=== PATIENT | male | born 1965 | race Caucasian/White ===

== ENCOUNTER 2022-03-11 08:36 | Emergency (ER) | payer SELFPAY ==
--- NOTE | 2022-03-11 09:14 | EDPHYS ---
Physician Documentation [facility] Name: Hussein Torres Age: 56 yrs Sex: Male : 1965 Arrival Date: 03/11/2022 Time: 08:41 Bed 13 Private MD: ED Physician Joni Ying HPI: 03/11 09:43 This 56 yrs old Male presents to ER via Ambulatory with complaints of Worm In Ear. snw 09:43 Onset: The symptoms/episode began/occurred acutely. Associated signs and symptoms: The snw patient has no apparent associated signs or symptoms. The patient has not experienced similar symptoms in the past. pt was on course of abx 1 month ago for left OM. Historical: - Allergies: 08:50 No Known Allergies; ss - Immunization history:: Client reports receiving the 2nd dose of the Covid vaccine. - Social history:: Smoking status: Patient reports the use of cigarette tobacco products, smokes one pack cigarettes per day. ROS: 09:36 Constitutional: Negative for fever, chills, and weight loss, Eyes: Negative for injury, snw pain, redness, and discharge, Neck: Negative for injury, pain, and swelling, Cardiovascular: Negative for chest pain, palpitations, and edema, Respiratory: Negative for shortness of breath, cough, wheezing, and pleuritic chest pain, Abdomen/GI: Negative for abdominal pain, nausea, vomiting, diarrhea, and constipation, Back: Negative for injury and pain, : Negative for injury, bleeding, discharge, and swelling, MS/Extremity: Negative for injury and deformity, Skin: Negative for injury, rash, and discoloration, Neuro: Negative for headache, weakness, numbness, tingling, and seizure. 09:36 ENT: Positive for pt states he was pulling a live worm from the tissue of his ear at the helix. States the tool slipped and he doesn't know where the worm went. Exam: 09:35 Constitutional: This is a well developed, well nourished patient who is awake, alert, snw and in no acute distress. Head/Face: Normocephalic, atraumatic. Eyes: Pupils equal round and reactive to light, extra-ocular motions intact. Lids and lashes normal. Conjunctiva and sclera are non-icteric and not injected. Cornea within normal limits. Periorbital areas with no swelling, redness, or edema. Neck: Trachea midline, no thyromegaly or masses palpated, and no cervical lymphadenopathy. Supple, full range of motion without nuchal rigidity, or vertebral point tenderness. No Meningismus. Chest/axilla: Normal chest wall appearance and motion. Nontender with no deformity. No lesions are appreciated. Cardiovascular: Regular rate and rhythm with a normal S1 and S2. No gallops, murmurs, or rubs. Normal PMI, no JVD. No pulse deficits. Respiratory: Lungs have equal breath sounds bilaterally, clear to auscultation and percussion. No rales, rhonchi or wheezes noted. No increased work of breathing, no retractions or nasal flaring. Abdomen/GI: Soft, non-tender, with normal bowel sounds. No distension or tympany. No guarding or rebound. No evidence of tenderness throughout. Back: No spinal tenderness. No costovertebral tenderness. Full range of motion. Skin: Warm, dry with normal turgor. Normal color with no rashes, no lesions, and no evidence of cellulitis. MS/ Extremity: Pulses equal, no cyanosis. Neurovascular intact. Full, normal range of motion. Neuro: Awake and alert, GCS 15, oriented to person, place, time, and situation. Cranial nerves II-XII grossly intact. Motor strength 5/5 in all extremities. Sensory grossly intact. Cerebellar exam normal. Normal gait. Psych: Awake, alert, with orientation to person, place and time. Behavior, mood, and affect are within normal limits. 09:35 ENT: External ear(s): pt has a visible pit to mid helix, has been manipulating the area with pliers, hemastats, etc. Area above pit unroofed, with mild cellulitis, TM's: erythema, that is mild, bilaterally, Nose: is normal, Mouth: is normal. Vital Signs: 08:47 BP 148 / 76; Pulse 97; Resp 18; Temp 98.6(TE); Pulse Ox 95% on R/A; Weight 104.33 kg; ss Height 5 ft. 10 in. (177.80 cm); Pain 0/10; 09:15 BP 131 / 92; Pulse 90; Resp 18; Pulse Ox 95% on R/A; db 10:19 BP 138 / 87; Pulse 88; Resp 18; Pulse Ox 95% on R/A; db 08:47 Body Mass Index 33.00 (104.33 kg, 177.80 cm) ss MDM: 08:51 Patient medically screened. snw 09:37 Differential diagnosis: viral Infection, bacterial infection, parasitic infection. Data snw reviewed: vital signs, nurses notes. Historians other than the Patient: Parent: Mom. Counseling: I had a detailed discussion with the patient and/or guardian regarding: the historical points, exam findings, and any diagnostic results supporting the discharge/admit diagnosis, the presence of at least one elevated blood pressure reading (>120/80) during this emergency department visit, the need for outpatient follow up, for definitive care, to return to the emergency department if symptoms worsen or persist or if there are any questions or concerns that arise at home. Special discussion: I have referred the patient to see his PCP for further evaluation of high blood pressure. Based on the history and exam findings, there is no indication for further emergent testing or inpatient evaluation. I discussed with the patient/guardian the need to see the ENT specialist for further evaluation of the symptoms. I discussed with the patient/guardian the need to see the primary care provider for further evaluation of the symptoms. Administered Medications: 09:25 Drug: Boostrix Tdap 0.5 ml Route: IM; Site: right deltoid; db 09:48 Follow up: Response: No adverse reaction db 09:25 Drug: Mupirocin Ointment 2 % 1 application {Note: right ear.} Route: Topical; Site: db wound; 09:48 Follow up: Response: No adverse reaction db 09:25 Drug: Hibiclens (chlorhexidine) Liquid 4 % 1 application {Note: right ear.} Route: db Topical; Site: wound; 09:48 Follow up: Response: No adverse reaction db 09:25 Drug: [place] (HYDROcodone-acetaminophen) 5 mg-325 mg 1 tabs Route: PO; db 09:48 Follow up: Response: No adverse reaction db 09:34 CANCELLED (Physician Discretion): Clindamycin 600 mg IM once snw 09:43 Drug: Clindamycin 300 mg Route: PO; db 10:17 Follow up: Response: No adverse reaction db 09:47 CANCELLED (Medication not available from pharmacyy): Pyrantel Pamoate 250 mg PO once db 10:15 Drug: Ivermectin 15 mg Route: PO; db 10:19 Follow up: Response: No adverse reaction db Disposition: :23 Co-signature as Attending Physician, Joni Ying DO I was immediately available on-site ms3 in the Emergency Department for consultation in the care of the patient. Disposition Summary: 03/11/22 09:14 Discharge Ordered Location: Home snw Condition: Stable snw Diagnosis - Other otitis externa, right ear - potential cauliflower ear snw Followup: snw - With: Emergency Department - When: As needed - Reason: Worsening of condition Followup: snw - With: Private Physician - When: 5 - 6 days - Reason: Recheck today's complaints, Continuance of care, Re-evaluation by your physician Discharge Instructions: - Discharge Summary Sheet snw - Otitis Externa snw - Cauliflower Ear snw Forms: - Medication Reconciliation Form snw - Thank You Letter snw - Antibiotic Education snw - Prescription Opioid Use snw Prescriptions: - Clindamycin HCl 300 mg Oral Capsule - take 1 capsule by ORAL route every 8 hours for 10 days; 30 capsule; Refills: 0, snw Product Selection Permitted - mupirocin 2 % Topical ointment - apply 1 application by TOPICAL route 3 times per day; 50 gram; Refills: 0, snw Product Selection Permitted Signatures: Lena Sr FNP-C INFORMATICS COORDINATOR-Csnw Nicolasa Williamson RN RN ss Joni Ying DO DO ms3 Morenita Ahn RN RN db Corrections: (The following items were deleted from the chart) 09:34 09:10 Clindamycin 600 mg IM once ordered. snw snw 09:47 09:19 Pyrantel Pamoate 250 mg PO once ordered. snw db
--- NOTE | 2022-03-11 09:14 | ER ---
Nurse's Notes [facility] Name: Hussein Torres Age: 56 yrs Sex: Male : 1965 Arrival Date: 03/11/2022 Time: 08:41 Bed 13 Private MD: Diagnosis: Other otitis externa, right ear-potential cauliflower ear Presentation: 03/11 08:47 Chief complaint: Patient states: "I got a critter that took up residence in my ear!" Pt ss reports that he believes there is a strong worm in his R ear for the past 3 weeks. Coronavirus screen: Client denies travel out of the [place] in the last 14 days. Ebola Screen: Patient denies exposure to infectious person. Patient denies travel to an Ebola-affected area in the 21 days before illness onset. Initial Sepsis Screen: Does the patient meet any 2 criteria? No. Patient's initial sepsis screen is negative. Does the patient have a suspected source of infection? No. Patient's initial sepsis screen is negative. Risk Assessment: Do you want to hurt yourself or someone else? Patient reports no desire to harm self or others. Onset of symptoms was February 17, 2022. 08:47 Method Of Arrival: Ambulatory ss 08:47 Acuity: SANG 4 ss Triage Assessment: 09:00 General: Appears in no apparent distress. db Historical: - Allergies: 08:50 No Known Allergies; ss - Immunization history:: Client reports receiving the 2nd dose of the Covid vaccine. - Social history:: Smoking status: Patient reports the use of cigarette tobacco products, smokes one pack cigarettes per day. Screenin:55 [facility] ED Fall Risk Assessment (Adult) History of falling in the last 3 months, db including since admission No falls in past 3 months (0 pts) Confusion or Disorientation No (0 pts) Intoxicated or Sedated No (0 pts) Impaired Gait No (0 pts) Mobility Assist Device Used No (0 pt) Altered Elimination No (0 pt) Score/Fall Risk Level 0 - 2 = Low Risk Oriented to surroundings, Maintained a safe environment. Abuse screen: Denies threats or abuse. Denies injuries from another. Nutritional screening: No deficits noted. Tuberculosis screening: No symptoms or risk factors identified. Assessment: 08:52 Reassessment: Patient appears in no apparent distress at this time. Patient and/or db family updated on plan of care and expected duration. Pain level reassessed. Patient is alert, oriented x 3, equal unlabored respirations, skin warm/dry/pink. patient states has a worm or "critter" in his right ear x 2 weeks. General: Appears in no apparent distress. comfortable, Behavior is calm, cooperative, appropriate for age. Pain: Complains of pain in right ear. Neuro: No deficits noted. Level of Consciousness is awake, alert, obeys commands, Oriented to person, place, time, situation, Moves all extremities. Speech is normal. Cardiovascular: No deficits noted. Respiratory: Airway is patent Respiratory effort is even, unlabored, Respiratory pattern is regular, symmetrical. GI: No deficits noted. No signs and/or symptoms were reported involving the gastrointestinal system. 09:50 Reassessment: Patient appears in no apparent distress at this time. patient discharge db pending medication from pharmacy. 10:17 Reassessment: Patient appears in no apparent distress at this time. Patient and/or db family updated on plan of care and expected duration. Pain level reassessed. Patient is alert, oriented x 3, equal unlabored respirations, skin warm/dry/pink. Vital Signs: 08:47 BP 148 / 76; Pulse 97; Resp 18; Temp 98.6(TE); Pulse Ox 95% on R/A; Weight 104.33 kg; ss Height 5 ft. 10 in. (177.80 cm); Pain 0/10; 09:15 BP 131 / 92; Pulse 90; Resp 18; Pulse Ox 95% on R/A; db 10:19 BP 138 / 87; Pulse 88; Resp 18; Pulse Ox 95% on R/A; db 08:47 Body Mass Index 33.00 (104.33 kg, 177.80 cm) ED Course: 08:41 Patient arrived in ED. rg4 08:49 Triage completed. ss 08:50 Arm band placed on right wrist. ss 08:51 Lena Sr FNP-C is PHCP. snw 08:51 Joni Ying DO is Attending Physician. snw 08:52 Morenita Ahn, RN is Primary Nurse. db 08:55 Patient has correct armband on for positive identification. Bed in low position. Call db light in reach. Side rails up X 1. 10:18 No provider procedures requiring assistance completed. Patient did not have IV access db during this emergency room visit. Administered Medications: 09:25 Drug: Boostrix Tdap 0.5 ml Route: IM; Site: right deltoid; db 09:48 Follow up: Response: No adverse reaction db 09:25 Drug: Mupirocin Ointment 2 % 1 application {Note: right ear.} Route: Topical; Site: db wound; 09:48 Follow up: Response: No adverse reaction db 09:25 Drug: Hibiclens (chlorhexidine) Liquid 4 % 1 application {Note: right ear.} Route: db Topical; Site: wound; 09:48 Follow up: Response: No adverse reaction db 09:25 Drug: [place] (HYDROcodone-acetaminophen) 5 mg-325 mg 1 tabs Route: PO; db 09:48 Follow up: Response: No adverse reaction db 09:34 CANCELLED (Physician Discretion): Clindamycin 600 mg IM once snw 09:43 Drug: Clindamycin 300 mg Route: PO; db 10:17 Follow up: Response: No adverse reaction db 09:47 CANCELLED (Medication not available from pharmacyy): Pyrantel Pamoate 250 mg PO once db 10:15 Drug: Ivermectin 15 mg Route: PO; db 10:19 Follow up: Response: No adverse reaction db Medication: 09:49 Vaccine Information Statement (VIS) provided today. Questions and/or concerns db addressed. VIS edition date: September 22, 2020. Outcome: 09:14 Discharge ordered by MD. snw 10:18 Discharged to home ambulatory, with family. db 10:18 Condition: stable 10:18 Discharge instructions given to patient, Instructed on discharge instructions, follow up and referral plans. Demonstrated understanding of instructions, follow-up care, Prescriptions given X 2. 10:20 Patient left the ED. db Signatures: Lena Sr, BODY WORK AUTO TRIMMER-C BODY WORK AUTO TRIMMER-Juaniw Nicolasa Williamson RN RN ss Garcia, Rubi rg4 Morenita Ahn RN RN db Corrections: (The following items were deleted from the chart) 09:17 08:55 VIS not applicable for this client. db db
[2022-03-11] MEDS ORDERED: TDAP (DIPHTH,PERTUSS(ACELL),TET VAC) 0.5 ML VIAL IMVAC ONE (09:25)
[2022-03-11] MEDS ORDERED: MUPIROCIN 2% OINT 22GM TUBE TOP ONE (09:25)
[2022-03-11] MEDS ORDERED: HYDROCODONE/APAP 5/325 MG TAB ONE (09:25)
[2022-03-11] MEDS ORDERED: IVERMECTIN 3 MG TABLET PO ONE (10:00)
[2022-03-11 11:00] VITALS: TEMP 98.6; O2SAT 95
[2022-03-11 11:03] VITALS: BP 138/87
== END 2022-03-11 10:20 | disposition home or self-care (01) ==
LOC: ER 08:36
DX: H60.8X1 Other otitis externa, right ear (principal); F17.210 Nicotine dependence, cigarettes, uncomplicated
CPT/HCPCS: 96372; 99283

== ENCOUNTER 2022-04-04 07:57 | Emergency (ER) | payer SELFPAY ==
[2022-04-04] MEDS ORDERED: KETOROLAC 30 MG/ML INJ ONE (08:39)
[2022-04-04 09:01] LABS: Absolute Lymphocytes (CBC) 1.9 K/uL (0.7-4.9); Hematocrit 43.3 % (39.6-49.0); Lymphocytes % 20.7 % (15.3-44.8); MCV 86.2 fL (80-100); MPV 7.2 fL (7.6-11.3); RBC Red Blood Cell Count 5.02 M/uL (4.33-5.43)
[2022-04-04 09:27] LABS: Bilirubin Direct 0.1 mg/dL (0-0.2); Bilirubin Total 0.3 mg/dL (0.2-1.0); Magnesium 2.5 mg/dL (1.6-2.4); Potassium 3.5 mmol/L (3.5-5.1); Protein, Total 8.2 g/dL (6.4-8.2); Uric Acid 10.2 mg/dL (3.5-7.2)
--- NOTE | 2022-04-04 09:28 | RAD REPORT ---
EXAM DESCRIPTION: US - Extrem Venous W Compress Satya - 04/04/2022 9:11 am CLINICAL HISTORY: PAIN Bilateral leg edema and swelling. COMPARISON: No comparisons TECHNIQUE: Real-time sonographic interrogation of the left and right lower extremity deep venous sys tems was performed. FINDINGS: Normal compressibility, flow augmentation, phasic flow and spontaneous flow is identified in both the left and right lower extremity deep venous systems. IMPRESSION: No sonographic evidence of left or right lower extremity deep venous thrombosis.
[2022-04-04] MEDS ORDERED: LORazepam 2 MG/ML VIAL ONE (09:37)
[2022-04-04 09:43] LABS: SARS-COV-2 RT PCR NEGATIVE (NEGATIVE)
--- NOTE | 2022-04-04 09:46 | RAD REPORT ---
EXAM DESCRIPTION: RAD - Chest Single View - 04/04/2022 9:36 am CLINICAL HISTORY: SOB Chest pain. COMPARISON: No comparisons FINDINGS: Portable technique limits examination quality. Mild interstitial pulmonary edema is possible. The heart is normal in size. No displaced fractures.
[2022-04-04 09:49] LABS: Protime INR 1.01
--- NOTE | 2022-04-04 10:33 | RAD REPORT ---
EXAM DESCRIPTION: CT - Head Brain Wo Cont - 04/04/2022 10:25 am CLINICAL HISTORY: headache, seizure COMPARISON: No comparisons TECHNIQUE: All CT scans are performed using dose optimization technique as appropriate and may inclu de automated exposure control or mA/KV adjustment according to patient size. FINDINGS: No intracranial hemorrhage, hydrocephalus or extra-axial fluid collection.No areas of brai n edema or evidence of midline shift. The paranasal sinuses and mastoids are clear. The calvarium is intact. IMPRESSION: No acute intracranial abnormality.
--- NOTE | 2022-04-04 11:15 | RAD REPORT ---
EXAM DESCRIPTION: CT - Chest For Pe Angio - 04/04/2022 10:56 am CLINICAL HISTORY: Chest pain. SOB COMPARISON: No comparisons TECHNIQUE: CT angiogram of the pulmonary arteries was performed with MIP. All CT scans are performed using dose optimization technique as appropriate and may include automated exposure control or mA/KV adjustment according to patient size. FINDINGS: No evidence of pulmonary thromboembolism. No acute aortic finding demonstrated. Mild diffuse COPD is present. 7 mm pulmonary nodule is present anterior right middle lobe. Mild scarr ing or linear atelectasis seen in the lingula. No significant pericardial or pleural fluid. No concerning bony finding. IMPRESSION: No evidence of pulmonary thromboembolism. COPD with 7 mm nonspecific pulmonary nodule anterior right middle lobe. Follow-up CT chest in 3-6 mon ths would be advised for surveillance.
--- NOTE | 2022-04-04 11:51 | EKG ---
Test Date: 2022-04-04 Test Time: 08:28:23 Engagement Specialist: CHINO MEASUREMENT RESULTS: Intervals: Rate: 78 WV: 180 QRSD: 82 QT: 394 QTc: 449 Tram: P: 268 WV: 180 QRS: -3 T: 65 INTERPRETIVE STATEMENTS: Unusual P axis, possible ectopic atrial rhythm Abnormal ECG No previous ECG available for comparison Electronically Signed On 04-04-22 11:50:44 STEM SIZER by Rafael Frazier
--- NOTE | 2022-04-04 13:18 | EDPHYS ---
Physician Documentation [facility] Name: Hussein Torres Age: 56 yrs Sex: Male : 1965 Arrival Date: 04/04/2022 Time: 08:00 Bed 6 Private MD: ED Physician Jazzmine [place]ows HPI: 04/04 08:25 This 56 yrs old Male presents to ER via Wheelchair with complaints of Feet Swelling, jmm Fatigue, Headache. 08:25 The patient presents with pain, that is acute. Onset: The symptoms/episode jmm began/occurred gradually, 3 week(s) ago. 15:41 Modifying factors: The symptoms are alleviated by nothing. the symptoms are aggravated jmm by nothing. This is a 56-year-old male with history of gout the presents emerged part with complaints of chest pain, shortness of breath lower extremity swelling. Mother states the symptoms have been ongoing intermittently over the past 3 months. Patient saw his PCP yesterday and prescribed a diuretic. Patient states he is also having an active gout flare and is not currently taking his allopurinol. Denies fever.. Historical: - Allergies: 08:23 No Known Allergies; jl7 - PMHx: 08:23 Gout; jl7 - Immunization history:: Client reports receiving the 2nd dose of the Covid vaccine. - Social history:: Smoking status: Patient reports the use of cigarette tobacco products, smokes one pack cigarettes per day. ROS: 15:41 Constitutional: Negative for fever, chills, and weight loss. jmm 15:41 Cardiovascular: Positive for chest pain. 15:41 Respiratory: Positive for shortness of breath. 15:41 MS/extremity: Positive for pain, swelling. 15:41 All other systems are negative. Exam: 15:41 Constitutional: This is a well developed, well nourished patient who is awake, alert, jmm and in no acute distress. Head/Face: atraumatic. Eyes: EOMI, no conjunctival erythema appreciated ENT: Moist Mucus Membranes Neck: Trachea midline, Supple Chest/axilla: Normal chest wall appearance and motion. Cardiovascular: Regular rate and rhythm. No edema appreciated Respiratory: Normal respirations, no respiratory distress appreciated Abdomen/GI: Non distended Back: Normal ROM 15:41 Musculoskeletal/extremity: Edema noted bilaterally to the lower extremities, full dorsalis pedis pulse, compartments are soft, neurovascular intact. 15:41 Skin: Erythema noted to the right lower leg. 15:41 Neuro: Orientation: is normal, Mentation: is normal, Memory: is normal. 15:41 Psych: Behavior/mood is pleasant, cooperative. Vital Signs: 08:21 BP 127 / 80; Pulse 74; Resp 19; Temp 98; Pulse Ox 92% on R/A; Weight 109.32 kg; Height jl7 5 ft. 11 in. (180.34 cm); Pain 0/10; 09:14 BP 138 / 92; Pulse 75; Resp 18; Pulse Ox 99% on 3 lpm NC; ld1 10:17 BP 155 / 86; Pulse 87; Resp 18; Pulse Ox 98% on R/A; Pain 0/10; ld1 12:35 BP 159 / 81; Pulse 82; Resp 18; Pulse Ox 97% on R/A; ld1 08:21 Body Mass Index 33.61 (109.32 kg, 180.34 cm) jl7 MDM: 08:25 Patient medically screened. nancy 13:16 Data reviewed: vital signs, nurses notes. Consideration of Admission/Observation. I nancy considered the following discharge prescriptions or medication management in the emergency department Medications were administered in the Emergency Department. See MAR. Independent interpretation of the following test(s) in the Emergency Department X-Ray: My interpretation is no infiltrate. Historians other than the Patient: mother. Counseling: I had a detailed discussion with the patient and/or guardian regarding: the historical points, exam findings, and any diagnostic results supporting the discharge/admit diagnosis, lab results, radiology results, the need for outpatient follow up, to return to the emergency department if symptoms worsen or persist or if there are any questions or concerns that arise at home. 13:16 ED course: Patient is alert nontoxic in appearance in the ED. Labs are unremarkable. nancy Patient advised follow-up PCP and otherwise given strict return precautions. Patient understood and agrees plan of care.. 04/04 08:32 Order name: Basic Metabolic Panel; Complete Time: 09:[address] [facility] 04/04 08:32 Order name: CBC with Diff; Complete Time: 09:[address] [facility] 04/04 08:32 Order name: LFT's; Complete Time: 09:[address] [facility] 04/04 08:32 Order name: Magnesium; Complete Time: 09:31 04/04 08:32 Order name: NT PRO-BNP; Complete Time: 09:31 04/04 08:32 Order name: PT-INR; Complete Time: 09:50 04/04 08:32 Order name: Troponin HS; Complete Time: 09:31 04/04 08:32 Order name: XRAY Chest (1 view); Complete Time: 09:50 04/04 08:32 Order name: Uric Acid; Complete Time: 09:31 04/04 08:32 Order name: US Extremity Venous W Compression Satya; Complete Time: 09:31 04/04 08:43 Order name: COVID-19/FLU A+B; Complete Time: 09:50 04/04 10:11 Order name: CT Head Brain wo Cont; Complete Time: 10:36 04/04 10:42 Order name: CT Chest For PE Angio; Complete Time: 11:22 04/04 10:47 Order name: Troponin High Sensitivity: repeat; Complete Time: 11:44 04/04 08:32 Order name: EKG; Complete Time: 08:33 04/04 08:32 Order name: Cardiac monitoring; Complete Time: 08:33 04/04 08:32 Order name: EKG - Nurse/Tech; Complete Time: 08:33 04/04 08:32 Order name: IV Saline Lock; Complete Time: 08:58 04/04 08:32 Order name: Labs collected and sent; Complete Time: 08:58 04/04 08:32 Order name: O2 Per Protocol; Complete Time: 08:33 04/04 08:32 Order name: O2 Sat Monitoring; Complete Time: 08:33 04/04 09:08 Order name: Labs - recollect needed: BLUE TOP; Complete Time: 09:23 em1 Administered Medications: 08:32 CANCELLED (Duplicate Order): Zofran (Ondansetron) 4 mg IVP once; over [address] [facility] 08:58 Drug: Ketorolac 30 mg Route: IVP; Site: right antecubital; ld1 09:13 Follow up: Response: No adverse reaction ld1 09:37 Drug: Ativan (LORazepam) 1 mg Route: IVP; Site: left antecubital; ld1 Disposition Summary: 04/04/22 13:18 Discharge Ordered Location: Home [facility] Condition: Stable jm Diagnosis - Chest pain, unspecified jmm - Gout, unspecified jmm Followup: [facility] - With: Private Physician - When: 2 - 3 days - Reason: Recheck today's complaints, Continuance of care, Re-evaluation by your physician Discharge Instructions: - Discharge Summary Sheet jm - Nonspecific Chest Pain, Adult jmm - Gout jm - Low-Purine Eating Plan [facility] Forms: - Medication Reconciliation Form [facility] - Thank You Letter [facility] - Antibiotic Education [facility] - Prescription Opioid Use [facility] Prescriptions: - Diclofenac Sodium 75 mg Oral Tablet Sustained Release - take 1 tablet by ORAL route 2 times per day; 30 tablet; Refills: 0, Product [facility] Selection Permitted - Cephalexin 500 mg Oral Capsule - take 1 capsule by ORAL route every 6 hours for 10 days; 40 capsule; Refills: 0, [facility] Product Selection Permitted - orphenadrine citrate 100 mg Oral Tablet Sustained Release - take 1 tablet by ORAL route 2 times per day As needed; 20 tablet; Refills: 0, [facility] Product Selection Permitted Signatures: Dispatcher [employer] EDMS Saran Richardson PA PA jmm Martinez, Eric em1 Mirna Neff RN RN jl7 Joan Harvey RN RN ld1 Corrections: (The following items were deleted from the chart) 08:32 08:32 Zofran (Ondansetron) 4 mg IVP once; over 2 minutes ordered. [facility]
--- NOTE | 2022-04-04 13:18 | ER ---
Nurse's Notes [facility] Name: Hussein Torres Age: 56 yrs Sex: Male : 1965 Arrival Date: 04/04/2022 Time: 08:00 Bed 6 Private MD: Diagnosis: Chest pain, unspecified;Gout, unspecified Presentation: 04/04 08:21 Chief complaint: Patient states: Feet swelling, headache, fatigue, chest pressure x 3 jl7 weeks, worse today; started on diuretic yesterday. Coronavirus screen: Vaccine status: Patient reports receiving the 2nd dose of the covid vaccine. At this time, the client does not indicate any symptoms associated with coronavirus-19. Ebola Screen: No symptoms or risks identified at this time. Initial Sepsis Screen: Does the patient meet any 2 criteria? No. Patient's initial sepsis screen is negative. Does the patient have a suspected source of infection? No. Patient's initial sepsis screen is negative. Risk Assessment: Do you want to hurt yourself or someone else? Patient reports no desire to harm self or others. Onset of symptoms is unknown. 08:21 Method Of Arrival: Wheelchair [facility] 08:21 Acuity: SANG 2 jl7 Triage Assessment: 08:23 Headache History: The patient has had previous headaches and this one is similar to jl7 previous episodes. General: Appears in no apparent distress. uncomfortable, Behavior is calm, cooperative, appropriate for age. Pain: Denies pain. Pain currently is 0 out of 10 on a pain scale. Pain began gradually, Also complains of no other associated symptoms. Neuro: Level of Consciousness is awake, alert, obeys commands, Oriented to person, place, time, situation. Historical: - Allergies: 08:23 No Known Allergies; jl7 - PMHx: 08:23 Gout; jl7 - Immunization history:: Client reports receiving the 2nd dose of the Covid vaccine. - Social history:: Smoking status: Patient reports the use of cigarette tobacco products, smokes one pack cigarettes per day. Screenin:14 [facility] ED Fall Risk Assessment (Adult) History of falling in the last 3 months, ld1 including since admission No falls in past 3 months (0 pts). Abuse screen: Denies threats or abuse. Denies injuries from another. Nutritional screening: No deficits noted. Tuberculosis screening: No symptoms or risk factors identified. Assessment: 09:14 General: Appears in no apparent distress. comfortable, Behavior is calm, cooperative, ld1 appropriate for age. Pain: Denies pain. Neuro: Level of Consciousness is awake, alert, obeys commands, Oriented to person, place, time, situation, Appropriate for age. Neuro: Reports headache in entire. Cardiovascular: Capillary refill < 3 seconds Patient's skin is warm and dry. Rhythm is sinus rhythm. Respiratory: Airway is patent Respiratory effort is even, unlabored. GI: Abdomen is round non-distended. : No signs and/or symptoms were reported regarding the genitourinary system. EENT: No signs and/or symptoms were reported regarding the EENT system. Derm: No signs and/or symptoms reported regarding the dermatologic system. Musculoskeletal: No signs and/or symptoms reported regarding the musculoskeletal system. 10:17 Reassessment: Patient appears in no apparent distress at this time. Patient and/or ld1 family updated on plan of care and expected duration. Pain level reassessed. Laying in bed resting with mother at bedside. RR 18 Patient denies pain at this time. 12:35 Reassessment: Patient appears in no apparent distress at this time. No changes from ld1 previously documented assessment. Pt sleeping in bed with mother at bedside. Vital Signs: 08:21 BP 127 / 80; Pulse 74; Resp 19; Temp 98; Pulse Ox 92% on R/A; Weight 109.32 kg; Height jl7 5 ft. 11 in. (180.34 cm); Pain 0/10; 09:14 BP 138 / 92; Pulse 75; Resp 18; Pulse Ox 99% on 3 lpm NC; ld1 10:17 BP 155 / 86; Pulse 87; Resp 18; Pulse Ox 98% on R/A; Pain 0/10; ld1 12:35 BP 159 / 81; Pulse 82; Resp 18; Pulse Ox 97% on R/A; ld1 08:21 Body Mass Index 33.61 (109.32 kg, 180.34 cm) jl7 ED Course: 08:00 Patient arrived in ED. mr 08:07 Saran Richardson PA is PHCP. [facility] 08:07 Jazzmine Meadows MD is Attending Physician. [facility] 08:21 Joan Harvey, DERICK is Primary Nurse. ld1 08:23 Triage completed. jl7 08:23 Arm band placed on right wrist. jl7 08:58 Inserted saline lock: 22 gauge in right antecubital area, using aseptic technique. ld1 Blood collected. 09:13 US Extremity Venous W Compression Satya In Process Unspecified. EDMS 09:13 COVID-19/FLU A+B Sent. ld1 09:14 Patient has correct armband on for positive identification. Placed in gown. Bed in low ld1 position. Call light in reach. Side rails up X2. personnel monitor on. Pulse ox on. NIBP on. Door closed. Noise minimized. Warm blanket given. 09:14 No provider procedures requiring assistance completed. ld1 09:38 XRAY Chest (1 view) In Process Unspecified. EDMS 10:26 CT Head Brain wo Cont In Process Unspecified. EDMS 10:58 CT Chest For PE Angio In Process Unspecified. EDMS 14:06 IV discontinued, intact, bleeding controlled, No redness/swelling at site. ld1 Administered Medications: 08:32 CANCELLED (Duplicate Order): Zofran (Ondansetron) 4 mg IVP once; over 2 minutes [facility] 08:58 Drug: Ketorolac 30 mg Route: IVP; Site: right antecubital; ld1 09:13 Follow up: Response: No adverse reaction ld1 09:37 Drug: Ativan (LORazepam) 1 mg Route: IVP; Site: left antecubital; ld1 Medication: 09:14 VIS not applicable for this client. ld1 Outcome: 13:18 Discharge ordered by . [facility] 14:06 Discharged to home ambulatory, with family. ld1 14:06 Condition: stable 14:06 Discharge instructions given to patient, family, Instructed on discharge instructions, follow up and referral plans. medication usage, Demonstrated understanding of instructions, follow-up care, medications, Prescriptions given X 3. 14:06 Patient left the ED. ld1 Signatures: Dispatcher [employer] EDMS Saran Richardson PA PA jmm Rivera, Mary mr Leal, Jahala, RN RN jl7 Joan Harvey RN RN ld1
[2022-04-04 14:11] VITALS: TEMP 98
[2022-04-04 14:14] VITALS: BP 159/81; O2SAT 97
== END 2022-04-04 14:06 | disposition home or self-care (01) ==
LOC: ER 07:57
DX: R07.9 Chest pain, unspecified (principal); M10.9 Gout, unspecified; F17.210 Nicotine dependence, cigarettes, uncomplicated
CPT/HCPCS: 0240U; 36415; 70450; 71045; 71275; 80048; 80076; 83735; 83880; 84484; 84550; 85025; 85610; 93005; 93970; 99284; Q9967